=== PATIENT | male | born 1935 | race Caucasian/White ===

== ENCOUNTER 2018-03-02 07:50 | Emergency (ER) | payer OTHER, BC ==
[~2018-03-02] VITALS: Ht 162.6 cm; Wt 77.1 kg
[~2018-03-02 07:50] MED LIST: ALLO300T2 PO; ASPI81TA2 PO; ATOR40TA68 PO; HYG25 PO; MULT-1164 PO; MV-M1TAB19 PO; NADALOL PO; PRO40 PO; TICA60TA PO
[2018-03-02 07:55] VITALS: BP_SYST 147
--- NOTE | 2018-03-02 07:55 | NUR ---
Patient to ER bed 6 to gown for evaluation. Side rails up.
--- NOTE | 2018-03-02 08:06 | NUR ---
ER Dr. Beckwith at bedside examining patient.
[2018-03-02] MEDS ORDERED: NACL 0.9% 1,000 ML IV ONE (08:17)
[2018-03-02] MEDS ORDERED: ONDANSETRON HCL 4 MG/2 ML VIAL IVP ONE (08:30)
[2018-03-02] MEDS ORDERED: MORPHINE 4 MG/ML INJ. SYRINGE IVP ONE (08:30)
[2018-03-02] MEDS ORDERED: ONDANSETRON HCL 4 MG/2 ML VIAL ONE (08:54)
[2018-03-02] MEDS ORDERED: MORPHINE 4 MG/ML INJ. SYRINGE ONE (08:54)
--- NOTE | 2018-03-02 08:55 | NUR ---
pt went to radiology in stable condition.
[2018-03-02 09:01] LABS: BILIRUBIN,URINE NEGATIVE (NEGATIVE); BLOOD, URINE NEGATIVE (NEGATIVE); CLARITY/URINE CLEAR (CLEAR); COLOR,URINE YELLOW (YELLOW); GLUCOSE,URINE NEGATIVE (NEGATIVE); KETONES,URINE NEGATIVE (NEGATIVE); LEUKOCYTE ESTERASE ,URINE NEGATIVE (NEGATIVE); NITRITE, URINE NEGATIVE (NEGATIVE); PROTEIN URINE NEGATIVE (NEGATIVE); UROBILINOGEN,URINE 0.2 (0.2-1.0)
--- NOTE | 2018-03-02 09:04 | NUR ---
Pt returned from radiology in stable condition
[2018-03-02 09:16] LABS: BASOPHILS # (AUTO) 0.1 K/uL (0.0-0.2); BASOPHILS % (AUTO) 1.3 % (0.0-2.0); EOSINOPHILS # (AUTO) 0.1 K/uL (0.0-0.4); EOSINOPHILS % (AUTO) 1.2 % (0.0-4.0); HEMATOCRIT 33.4 % (36-54); HEMOGLOBIN 11.3 g/dL (14.0-18.0); LYMPHOCYTES % (AUTO) 9.4 % (20.5-51.5); MEAN CORPUSCULAR HEMOGLOBIN 36 pg (27-31); MEAN CORPUSCULAR HGB CONC 34 % (32-36); MEAN CORPUSCULAR VOLUME 107 fL (79.0-98.0); MONOCYTES % (AUTO) 9.3 % (1.7-9.3); NEUTROPHILS # (AUTO) 8.7 K/uL (1.8-7.7); NEUTROPHILS % (AUTO) 78.8 % (40.0-70.0); PLATELET COUNT (AUTO) 199 K/uL (130-430); RED BLOOD CELL COUNT(AUTO) 3.13 MIL/uL (4.2-6.2); RED CELL DISTRIBUTION WIDTH 15.7 % (9.0-15.0); WHITE BLOOD COUNT (AUTO) 10.9 K/uL (4.8-10.8)
[2018-03-02 09:30] LABS: ANION GAP 8 (5-15); CHLORIDE 104 mmol/L (98-107); CREATININE 1.29 mg/dL (0.55-1.30); GLUCOSE 101 mg/dL (70-99); SODIUM SERUM 136 mmol/L (136-145); UREA NITROGEN, BLOOD 31 mg/dL (8-21)
[2018-03-02 09:34] LABS: ALANINE AMINOTRANSFERASE 23 U/L (12-78); ALBUMIN 3.4 g/dL (3.4-4.8); AMYLASE 84 U/L (0-100); ASPARTATE AMINOTRANSFERASE 18 U/L (10-37); LIPASE 190 U/L (73-393); TOTAL BILIRUBIN 1.3 mg/dL (0.0-1.0)
[2018-03-02 09:35] LABS: PROTHROMBIN TIME 10.3 SECS (9.5-12.5)
--- NOTE | 2018-03-02 10:58 | NUR ---
Medication was given, pt tolerated well. No adverse reaction, will continue to monitor.
[2018-03-02 11:50] VITALS: BP_SYST 134
--- NOTE | 2018-03-02 11:50 | NUR ---
Patient given written and verbal discharge instructions and verbalizes understanding. ER MD discussed with patient the results and treatment provided. Patient in stable condition. ID arm band removed. IV catheter removed intact and dressing applied, no active bleeding. Rx of Zithromax, Cipro, Flagyl, and Tylenol given. Patient educated on pain management and to follow up with PMD. Pain Scale 0. Opportunity for questions provided and answered. Medication side effect fact sheet provided.
== END 2018-03-02 11:50 | disposition home or self-care (01) ==
LOC: SED 07:50
DX: K57.92 Diverticulitis of intestine, part unspecified, without perforation or abscess without bleeding (principal); J18.9 Pneumonia, unspecified organism; I25.2 Old myocardial infarction; I10 Essential (primary) hypertension; Z90.49 Acquired absence of other specified parts of digestive tract; Z95.9 Presence of cardiac and vascular implant and graft, unspecified; Z79.82 Long term (current) use of aspirin; Z79.899 Other long term (current) drug therapy
CPT/HCPCS: 36415; 71045; 74176; 80053; 81003; 82150; 82550; 83690; 84484; 85025; 85610; 85730; 96365; 96375; 99285; J0696; J2270; J2405; J7030; 93005; J7060

== ENCOUNTER 2022-03-28 14:38 | Emergency (ER) | payer OTHER ==
[~2022-03-28] VITALS: Ht 162.6 cm; Wt 76.2 kg
[~2022-03-28 14:38] MED LIST changes: +ASPI-1155 PO; -ASPI81TA2 PO
[2022-03-28 15:05] VITALS: BP_SYST 148
--- NOTE | 2022-03-28 15:13 | NUR ---
Triaged pt and placed in waiting room until bed becomes available. Pt c/o right finger laceration due to slamming finger on car door today. Rates pain 1/10 non-radiating. Bleeding controlled. Pt is A&Ox4. VSS. NKA. Has hx of HTN, Hyperlipidemia, gout, and GERD.
--- NOTE | 2022-03-28 17:33 | NUR ---
Patient to ER bed 1 to gown for evaluation. Side rails up.
--- NOTE | 2022-03-28 17:41 | NUR ---
Cleaned wound on right index finger laceration. No bleeding at this time. X-Ray has been ordered.
--- NOTE | 2022-03-28 17:53 | NUR ---
X-Ray being done at bedside.
--- NOTE | 2022-03-28 18:27 | NUR ---
ER DR. SOLANO AT THE BEDSIDE EXAMINING PT
[2022-03-28] MEDS ORDERED: LIDOCAINE 1% 10 MG/ML, 20 ML MDV INJ ONE (18:30)
[2022-03-28] MEDS ORDERED: DIPHTH,PERTUSS(ACELL),TET VAC 0.5 ML VIAL (Tdap) I.M. ONE (18:30)
[2022-03-28] MEDS ORDERED: AMPICILLIN SODIUM/SULBACTAM NA 3 GM VIAL IM ONE (18:45)
--- NOTE | 2022-03-28 19:08 | NUR ---
Rec report from Muna RÍOS.
[2022-03-28 19:36] LABS: BASOPHILS # (AUTO) 0.1 K/uL (0.0-0.2); BASOPHILS % (AUTO) 0.7 % (0.0-2.0); EOSINOPHILS # (AUTO) 0.2 K/uL (0.0-0.4); HEMATOCRIT 32.6 % (36-54); HEMOGLOBIN 10.9 g/dL (14.0-18.0); LYMPHOCYTES # (AUTO) 1.3 K/uL (1.0-5.5); LYMPHOCYTES % (AUTO) 14.2 % (20.5-51.5); MEAN CORPUSCULAR HEMOGLOBIN 34 pg (27-31); MEAN CORPUSCULAR HGB CONC 34 % (32-36); MEAN CORPUSCULAR VOLUME 100 fL (79.0-98.0); MONOCYTES # (AUTO) 0.8 K/uL (0.0-1.0); MONOCYTES % (AUTO) 8.9 % (1.7-9.3); NEUTROPHILS # (AUTO) 6.6 K/uL (1.8-7.7); NEUTROPHILS % (AUTO) 74.2 % (40.0-70.0); PLATELET COUNT (AUTO) 195 K/uL (130-430); RED BLOOD CELL COUNT(AUTO) 3.24 MIL/uL (4.2-6.2); RED CELL DISTRIBUTION WIDTH 15.8 % (9.0-15.0); WHITE BLOOD COUNT (AUTO) 8.9 K/uL (4.8-10.8)
[2022-03-28] MEDS ORDERED: LIDOCAINE 1%, 20 ML MDV 20 ML ONE (20:06)
--- NOTE | 2022-03-28 20:10 | NUR ---
Dr. Lal administered 15mL of 1% Lidocaine at bedside for laceration treatment. Pt tolerated well.
[2022-03-28 20:32] LABS: ERYTHROCYTE SEDIMENTATION RATE 40 MM/HR (0-15)
--- NOTE | 2022-03-28 20:35 | NUR ---
Dr. Lal at bedside for laceration repair.
[2022-03-28] MEDS ORDERED: AMPICILLIN SODIUM/SULBACTAM NA 3 GM in NS 100 ML IV ONE (21:15)
[2022-03-28] MEDS ORDERED: AMOX1TAB14 PO (21:30)
[2022-03-28 22:25] VITALS: BP_SYST 167
--- NOTE | 2022-03-28 22:25 | NUR ---
Patient given written and verbal discharge instructions and verbalizes understanding. ER Dr. Lal discussed with patient the results and treatment provided. Patient in stable condition. ID arm band removed. IV catheter removed intact and dressing applied, no active bleeding. Rx of amoxicillin/potassium clav given. Patient educated on pain management and to follow up with PMD. Pain Scale 0. Frogleg splint placed and pt stated the splint was not tight and numbness/tingling reported. Opportunity for questions provided and answered. Medication side effect fact sheet provided.
[2022-03-28] MEDS ORDERED: KETOROLAC TROMETHAMINE 15 MG VIAL IVP PRN (23:00)
[2022-03-28] MEDS ORDERED: ONDANSETRON HCL 4 MG/2 ML VIAL IVP PRN (23:00)
[2022-03-28] MEDS ORDERED: cloNIDine HCL 0.1 MG TABLET PO PRN (23:00)
[2022-03-29] MEDS ORDERED: PANTOPRAZOLE SODIUM 40 MG/VIAL (PROTONIX) IVP ONE (09:00)
== END 2022-03-28 22:25 | disposition home or self-care (01) ==
LOC: SED 14:38 → STU 22:25 → UNDOADMIN 22:50
DX: S62.660B Nondisplaced fracture of distal phalanx of right index finger, initial encounter for open fracture (principal); I10 Essential (primary) hypertension; Z79.899 Other long term (current) drug therapy; W23.0XXA Caught, crushed, jammed, or pinched between moving objects, initial encounter; Y93.89 Activity, other specified; Y92.89 Other specified places as the place of occurrence of the external cause; Y99.8 Other external cause status
CPT/HCPCS: 99284; 96365; 85025; 85651; 36415; 73140; 90715; 90471; 12001; J0295; J2001; G0378